=== PATIENT | male | born 2005 | race Caucasian/White ===

== ENCOUNTER 2025-08-13 17:27 | Emergency (ER) | payer SELFPAY ==
[~2025-08-13] VITALS: Ht 170.2 cm; Wt 70.0 kg
[2025-08-13 17:32] VITALS: O2SAT 100
[2025-08-13] MEDS ORDERED: IBUP-1455 MT (18:51)
[2025-08-13] MEDS: ONDANSETRON HCL 4MG/2ML INJ IV ONE (19:46)
[2025-08-13] MEDS: MORPHINE SULFATE 4 MG/ML INJ (FOR IV/IM USE) IV ONE (19:46)
[2025-08-13 19:57] VITALS: BP 125/40; PULSE 75; RESP 22; TEMP 37.3; O2SAT 100
== END 2025-08-13 20:02 | disposition home or self-care (01) ==
LOC: ER 17:27
DX: S82.53XA Displaced fracture of medial malleolus of unspecified tibia, initial encounter for closed fracture (principal); W19.XXXA Unspecified fall, initial encounter; Y93.89 Activity, other specified; Y92.89 Other specified places as the place of occurrence of the external cause; Y99.8 Other external cause status
CPT/HCPCS: 99284; 96374; 29515; 96375; 73610; 73630; J2405; J2270